=== PATIENT | male | born 1985 | race Caucasian/White ===

== ENCOUNTER 2024-07-11 08:38 | Emergency (ER) | payer MEDICAID, SELFPAY ==
--- NOTE | 2024-07-11 09:03 | XR_ITS ---
Examination: PA lateral chest 2 views TECHNIQUE: Upright PA lateral chest 2 views Exam date and time: July 11, 2024 0926 hours INDICATIONS: Coughing fever shortness of breath beginning one week ago. FINDINGS: Suspicious for early right basilar pneumonia Normal heart size The osseous structures are intact IMPRESSION: Suspicious for early right base pneumonia
--- NOTE | 2024-07-11 09:04 | PD.EDURI ---
Upper Respiratory Inf. RME/HPI General Chief Complaint: Flu Like Symptoms Stated Complaint: Cough, chest pain, fever Time Seen by Provider: 07/11/24 09:05 Source: patient Arrival date/time: 07/11/24 08:38 38-year-old male with no known medical history presents to the emergency room with a chief complaint of cough, chest pain, fever x 1 week. Mode of arrival: ambulatory Limitations: no limitations Related Data Home Medications ?Medication ?Instructions ?Recorded ?Confirmed Hydrocodone/Acetaminophen * (NORCO 1 tab PO Q6H PRN PAIN #0 tabs 09/30/14 10/325 *) albuterol sulfate 90 mcg/actuation 1 puff inhalation Q4HR PRN PRN ##0 09/30/14 aerosol inhaler (ProAir HFA) beclomethasone dipropionate 80 1 puff inhalation Q4HR PRN PRN #0 09/30/14 mcg/actuation aerosol inhaler puffs (Qvar) carisoprodol 350 mg tablet 350 mg PO HS #0 tabs 09/30/14 gabapentin 400 mg capsule 800 mg PO TID #0 caps 09/30/14 naproxen 500 mg tablet (Naprosyn) 500 mg PO BIDWM #0 tabs 09/30/14 quetiapine 400 mg tablet (Seroquel) 800 mg PO HS #0 tabs 09/30/14 baclofen 20 mg tablet 20 mg PO TID #0 tabs 10/01/15 Previous Rx's ?Medication ?Instructions ?Recorded hydrocodone 5 mg-acetaminophen 325 1 tab PO Q6H PRN pain #14 tabs 05/20 mg tablet ([place]) ibuprofen 800 mg tablet 800 mg PO TID PRN pain #20 tabs 09/08/19 acetaminophen 325 mg capsule 650 mg (2 x 325 mg) PO QID PRN 07/11/24 fever or pain 7 days #30 caps albuterol sulfate 90 mcg/actuation 2 inh inhalation Q6H PRN shortness 07/11/24 breath activated powder inhaler of breath or wheezing #1 ea amoxicillin 875 mg-potassium 1 tab PO BID 7 days #14 tabs 07/11/24 clavulanate 125 mg tablet Allergies Allergy/AdvReac Type Severity Reaction Status Date / Time NKA* Allergy Uncoded 10/23/22 06:39 Review of Systems Review of Systems Systems Reviewed: All systems reviewed, normal except as documented Constitutional Constitutional: Reports system reviewed and no additional complaints, except as documented, Denies fatigue, Denies fever(s), Denies headache(s) and Denies weakness Eyes Eyes: Reports system reviewed and no additional complaints, except as documented, Denies blurry vision and Denies change in vision ENT Ears, Nose, Mouth, and Throat: Reports system reviewed and no additional complaints, except as documented, Denies otalgia, Denies headache(s), Denies nasal congestion, Denies throat swelling and Denies vertigo Cardiovascular Cardiovascular: Reports system reviewed and no additional complaints, except as documented, Denies chest pain, Reports dyspnea and Reports dyspnea on exertion Respiratory Respiratory: Reports system reviewed and no additional complaints, except as documented, Reports chest congestion, Reports cough, Reports dyspnea, Reports dyspnea on exertion, Reports excessive phlegm production, Reports pain on inspiration, Reports pain with cough and Reports wheezing Gastrointestinal Gastrointestinal: Reports system reviewed and no additional complaints, except as documented, Denies abdominal pain, Denies cramping, Denies nausea and Denies vomiting Genitourinary Genitourinary: Reports system reviewed and no additional complaints, except as documented, Denies dysuria and Denies hematuria Musculoskeletal Musculoskeletal: Reports system reviewed and no additional complaints, except as documented and Denies back pain Integumentary/Breasts Skin/Breast: Reports system reviewed and no additional complaints, except as documented and Denies wounds Neurologic Neurologic: Reports system reviewed and no additional complaints, except as documented, Denies confusion, Denies headache(s), Denies lack of coordination, Denies vertigo and Denies weakness Psychiatric Psychiatric: Reports system reviewed and no additional complaints, except as documented, Denies anxiety, Denies confusion, Denies depression, Denies paranoia, Denies suicidal ideation and Denies tactile hallucinations Endocrine Endocrine: Reports system reviewed and no additional complaints, except as documented and Denies fatigue Hematologic/Lymphatic Hematologic/Lymphatic: Reports system reviewed and no additional complaints, except as documented and Denies lymphadenopathy Allergic/Immunologic Allergic/Immunologic: Reports system reviewed and no additional complaints, except as documented, Denies throat swelling, Denies urticaria and Reports wheezing ED Exam General Limitations: Present no limitations General appearance: Present alert and in no apparent distress Head Head exam: Present atraumatic Eye Eye exam: Present normal appearance, PERRL and EOMI ENT ENT exam: Present normal exam, normal oropharynx and mucous membranes moist Neck Neck exam: Present normal inspection, full ROM and trachea midline Chest Chest inspection: Present normal inspection and symmetric chest wall rise Respiratory Respiratory exam: Present normal lung sounds bilaterally and wheezes; Absent respiratory distress, stridor, accessory muscle use or prolonged expiratory phase Expanded Respiratory Exam Location: Left: wheezes, Right: wheezes, Upper: wheezes and Lower: wheezes Cardiovascular Cardiovascular exam: Present regular rate, normal rhythm and normal heart sounds Abdominal Exam Abdominal exam: Present soft and normal bowel sounds Extremities Exam Extremities exam: Present normal inspection and full ROM Back Exam Back exam: Present normal inspection and full ROM Neurological Exam Neurological exam: Present alert, oriented X3 and CN II-XII intact Psychiatric Psychiatric exam: Present normal affect and normal mood Skin Skin exam: Present warm, dry, intact and normal color Course Quality Measures none Orders Category Date Time Status Bedside COVID-19 Antigen Test NOW Care 07/11/24 09:03 Completed Bedside Influenza A&B Antigen Test NOW Care 07/11/24 09:03 Completed XR chest 2V Stat Exams 07/11/24 09:03 Completed Albuterol/Ipratr Rt Debby [Duoneb Rt Debby] Med 07/11/24 09:03 Discontinued 3 ml INH X1 ONE Dexamethasone Inj [Decadron Inj] Med 07/11/24 09:03 Discontinued 10 mg PO X1 ONE Vital Signs Vital signs: Vital Signs Temperature 98.3 F 07/11/24 09:11 Pulse Rate 60 07/11/24 09:11 Respiratory Rate 20 07/11/24 09:11 Blood Pressure 175/97 H 07/11/24 09:11 Pulse Oximetry (%) 96 07/11/24 09:11 Oxygen Delivery Method Room Air 07/11/24 09:11 O2 saturation 96% within normal limits Upper Respiratory Infection MDM Narrative MDM Narrative:: 38-year-old male with no known medical history presents to the emergency room with a chief complaint of cough, chest pain, fever x 1 week. Patient is hemodynamically stable. Patient states he is short of breath. Lung sounds show wheezing bilaterally to the lower and upper lobes. Patient is congested, has a cough and states he has had intermittent fevers better controlled with medication. A breathing treatment and steroids was ordered and the patient was reevaluated in 1 hour with significant improvement to his symptoms. Patient's O2 saturation is 99% on room air. X-ray was completed and shows early right sided lower pneumonia. COVID-19 and influenza test were both negative. Patient was discharged with antibiotics educated to follow-up with primary care provider and return to the emergency room for any evidence of worsening signs or symptoms. Patient data External records reviewed:: [facility] previous records Clinical information provided by:: patient Social determinants that could affect healthcare access:: none Patient has the following chronic illnesses:: No chronic illness How is presenting disease/condition affected by chronic disease/condition?: no chronic disease Evaluation data The following diagnostics were reviewed and interpreted by me:: lab results and radiology exam(s) Lab and/or radiology exams considered but not ordered:: Labs and radiology exams considered and ordered Interpretation Summary: Chest [id number]: Suspicious for early right basilar pneumonia Normal heart size The osseous structures are intact IMPRESSION: Suspicious for early right base pneumonia Medications / Prescriptions Medications or Prescriptions considered but not ordered:: Medication given Medication administrations:: Medication Administration History Discontinued Medications Albuterol/Ipratropium (Albuterol/Ipratropium (Duoneb) Rt Debby 3 Ml Nebu) 3 ml INH X1 ONE Stop: 07/11/24 09:04 Last Admin: 07/11/24 09:30 Dose: 3 ml Documented By: RENEE Dexamethasone Sodium Phosphate (Dexamethasone Sod Phos Inj 10 Mg/Ml Vial) 10 mg PO X1 ONE Stop: 07/11/24 09:04 Last Admin: 07/11/24 09:12 Dose: 10 mg Documented By: VG Medication given Consultations Consultation(s) initiated? (list below): No Diagnosis Upper Respiratory Differential Diagnosis: upper respiratory infection, viral infection, bronchitis, influenza and other (Community-acquired pneumonia) Most likely diagnosis given after review of the tests above:: Community-acquired pneumonia Admission Indicated Admission indicated?: not indicated Admission Request Was there a request for admission?: No Disposition Plan Disposition Plan: Discharge Discharge Attestation Discharge Attestation: The patient and all family members were given an opportunity to ask questions and understood the discharge instructions. Discharge instructions specifically effects, indications for sooner follow up or return to the emergency department, and the expected course of current diagnosis. Patient condition: Stable Discharge Plan Plan Patient Disposition: HOME (Self Care) Disposition Comment: Stable Prescriptions/Referrals Prescriptions/Med Rec: New amoxicillin-pot clavulanate 875-125 mg tablet 1 tab PO BID 7 Days Qty: 14 0RF acetaminophen 325 mg capsule 650 mg PO QID PRN (Reason: fever or pain) 7 Days Qty: 30 0RF albuterol sulfate 90 mcg/actuation aerosol powdr breath activated 2 inh inhalation Q6H PRN (Reason: shortness of breath or wheezing) Qty: 1 0RF No Action carisoprodol 350 MG tablet 350 mg PO HS Qty: 0 gabapentin 400 MG capsule 800 mg PO TID Qty: 0 beclomethasone dipropionate [Qvar] 100 PUFF/INH aerosol 1 puff Inhalation Q4HR PRN (Reason: PRN) Qty: 0 albuterol sulfate [ProAir HFA] 8.5 GM HFA aerosol inhaler 1 puff Inhalation Q4HR PRN (Reason: PRN) Qty: 0 naproxen [Naprosyn] 500 MG tablet 500 mg PO BIDWM Qty: 0 Patient Comments: PRN PAIN quetiapine [Seroquel] 400 MG tablet 800 mg PO HS Qty: 0 Hydrocodone/Acetaminophen * (NORCO 10/325 *) 1 TAB tablet 1 tab PO Q6H PRN (Reason: PAIN) Qty: 0 baclofen 20 MG tablet 20 mg PO TID Qty: 0 hydrocodone-acetaminophen [K[place]land] 5-325 mg tablet 1 tab PO Q6H MDD 1 tablet in 6 hours PRN (Reason: pain) Qty: 14 0RF ibuprofen 800 mg tablet 800 mg PO TID PRN (Reason: pain) Qty: 20 0RF Referrals: No Primary/Family,Physician [Primary Care Provider] - In 1 week Problem List Clinical Impression: Community acquired pneumonia Patient/Caregiver Discharge Instructions Education Materials: ED Pneumonia (Adult) Additional Instructions: Please follow-up with your primary care provider in the next 24 to 48 hours. Antibiotics are sent to your pharmacy please pick them up and take them as indicated. I also sent an inhaler and some Tylenol to help you with your fever and help with the wheezing For any evidence of worsening signs or symptoms return to the emergency room immediately Print Language: Luxembourgish Stand Alone Forms: Carmen Award Info., Work/School Release, Patient Portal Info Letter PA/ATM TECHNICIAN Supervising Physician PA/ATM TECHNICIAN Supervising Physician: Dr. SAUNDERS
[2024-07-11 09:11] VITALS: BP 175/97; PULSE 60; RESP 20; TEMP 36.8; O2SAT 96
[2024-07-11 09:12] VITALS: BMI 30.6
[2024-07-11] MEDS: DEXAMETHASONE SOD PHOS INJ 10 MG/ML VIAL PO (09:12)
[2024-07-11] MEDS: ALBUTEROL/IPRATROPIUM (Duoneb) RT SOL 3 ML NEBU INH (09:30)
[2024-07-11 09:31] VITALS: PULSE 57; RESP 16; O2SAT 99
== END 2024-07-11 10:55 | disposition home or self-care (01) ==
PROVIDERS: Emergency Provider Emergency Medicine
DX: J18.9 Pneumonia, unspecified organism (principal)
CPT/HCPCS: 71046; 87400; 87811; 94640; 99283; A9270; J1100

== ENCOUNTER 2025-05-26 12:48 | Emergency (ER) | payer MEDICAID, SELFPAY ==
[2025-05-26 13:10] VITALS: BP 144/95; PULSE 58; RESP 20; TEMP 36.7; O2SAT 97; BMI 31.4
--- NOTE | 2025-05-26 13:23 | XR_ITS ---
Portable upright chest film on 05/26/2025 at 1:24 p.m. Comparison study 07/11/2024 INDICATION: Chest pain and congestion for 1 week FINDINGS: Heart size mediastinum and hilar regions are all radiographically normal. Both lungs and pleural space are clear no bony abnormalities are noted. There is very minimal chronic pleural thickening along the mid lateral right lung IMPRESSION: Essentially negative chest
--- NOTE | 2025-05-26 13:44 | EDNOTE_ITS ---
ED SOB =RME/HPI General Chief Complaint: Shortness of Breath/Dyspnea Stated Complaint: CONGESTION, SOB, SWEATING, FEVER Time Seen by Provider: 05/26/25 13:09 Source: patient Arrival date/time: 05/26/25 12:48 39-year-old male with no known medical history presents to the emergency room with a chief complaint of congestion, shortness of breath, fever, sweating x 3 days Mode of arrival: ambulatory Limitations: no limitations Related Data Home Medications ?Medication ?Instructions ?Recorded ?Confirmed Hydrocodone/Acetaminophen * (NORCO 1 tab PO Q6H PRN PA IN #0 tabs 09/30/14 10/325 *) albuterol sulfate 90 mcg/actuation 1 puff inhalation Q 4HR PRN PRN ##0 09/30/14 aerosol inhaler (ProAir HFA) beclomethasone dipropionate 80 1 puff inhalation Q4HR PRN PRN #0 09/30/14 mcg/actuation aerosol inhaler puffs (Qvar) carisoprodol 350 mg tablet 350 mg PO HS #0 tabs gabapentin 400 mg capsule 800 mg PO TID #0 caps naproxen 500 mg tablet (Naprosyn) 500 mg PO BIDWM #0 t abs 09/30/14 quetiapine 400 mg tablet (Seroquel) 800 mg PO HS #0 ta bs 09/30/14 baclofen 20 mg tablet 20 mg PO TID #0 tabs 6 Previous Rx's ?Medication ?Instructions ?Recorded hydrocodone 5 mg-acetaminophen 325 1 tab PO Q6H PRN pa in #14 tabs 09/07/20 mg tablet (Aubrey) ibuprofen 800 mg tablet 800 mg PO TID PRN pain #20 t abs 09/08/19 albuterol sulfate 90 mcg/actuation 2 inh inhalation Q6 H PRN shortness 07/11/24 breath activated powder inhaler of breath or wheezing #1 ea Allergies Allergy/AdvReac Type Severity Reaction Status Date / Time No Known Allergies Allergy Verified 05/26/25 12:51 Review of Systems Review of Systems Systems Reviewed: All systems reviewed, normal except as documented Constitutional Constitutional: Reports system reviewed and no additional complaints, except as documented, Denies fatigue, Denies fever(s), Denies headache(s) and Denies weakness Eyes Eyes: Reports system reviewed and no additional complaints, except as documented, Denies blurry vision and Denies change in vision ENT Ears, Nose, Mouth, and Throat: Reports system reviewed and no additional complaints, except as documented, Denies otalgia, Denies headache(s), Denies nasal congestion, Denies throat swelling and Denies vertigo Cardiovascular Cardiovascular: Reports system reviewed and no additional complaints, except as documented, Denies chest pain, Reports dyspnea and Denies dyspnea on exertion Respiratory Respiratory: Reports system reviewed and no additional complaints, except as documented, Denies chest congestion, Reports cough, Reports dyspnea, Denies dyspnea on exertion and Denies wheezing Gastrointestinal Gastrointestinal: Reports system reviewed and no additional complaints, except as documented, Denies abdominal pain, Denies cramping, Denies nausea and Denies vomiting Genitourinary Genitourinary: Reports system reviewed and no additional complaints, except as documented, Denies dysuria and Denies hematuria Musculoskeletal Musculoskeletal: Reports system reviewed and no additional complaints, except as documented and Denies back pain Integumentary/Breasts Skin/Breast: Reports system reviewed and no additional complaints, except as documented and Denies wounds Neurologic Neurologic: Reports system reviewed and no additional complaints, except as do cumented, Denies confusion, Denies headache(s), Denies lack of coordination, Denies vertigo and Denies weakness Psychiatric Psychiatric: Reports system reviewed and no additional complaints, except as documented, Denies anxiety, Denies confusion, Denies depression, Denies paranoia, Denies suicidal ideation and Denies tactile hallucinations Endocrine Endocrine: Reports system reviewed and no additional complaints, except as documented and Denies fatigue Hematologic/Lymphatic Hematologic/Lymphatic: Reports system reviewed and no additional complaints, except as documented and Denies lymphadenopathy Allergic/Immunologic Allergic/Immunologic: Reports system reviewed and no additional complaints, except as documented, Denies throat swelling, Denies urticaria and Denies wheezing Past Medical History Past Medical History CARDIAC: Negative Congestive Heart Failure RESPIRATORY: Negative Chronic Obstructive Pulmonary Disease (COPD) GENITOURINARY: Negative Renal Disease ENDOCRINE: Negative Diabetes Mellitus Type 1 or Diabetes Mellitus Type 2 Social History SMOKING STATUS: Never smoker ED Exam General Limitations: Present no limitations General appearance: Present alert and in no apparent distress Head Head exam: Present atraumatic Eye Eye exam: Present normal appearance, PERRL and EOMI ENT ENT exam: Present normal exam, normal oropharynx and mucous membranes moist Neck Neck exam: Present normal inspection, full ROM and trachea midline Chest Chest inspection: Present normal inspection and symmetric chest wall rise Respiratory Respiratory exam: Present normal lung sounds bilaterally; Absent respiratory distress, wheezes, stridor, accessory muscle use or prolonged expiratory phase Cardiovascular Cardiovascular exam: Present regular rate, normal rhythm and normal heart sounds Abdominal Exam Abdominal exam: Present soft and normal bowel sounds Extremities Exam Extremities exam: Present normal inspection and full ROM Back Exam Back exam: Present normal inspection and full ROM Neurological Exam Neurological exam: Present alert, oriented X3 and CN II-XII intact Psychiatric Psychiatric exam: Present normal affect and normal mood Skin Skin exam: Present warm, dry, intact and normal color Course Quality Measures none Orders Category Date Time Status Bedside COVID-19 Antigen Test NOW Care 05/26/25 13:23 Active Bedside Influenza A&B Antigen Test NOW Care 05/26/25 13:23 Completed XR chest 1V portable Stat Exams 05/26/25 13:23 Completed Vital Signs Vital signs: Vital Signs Temperature 98.1 F 05/26/25 13:10 Pulse Rate 58 L 05/26/25 13:10 Respiratory Rate 20 05/26/25 13:10 Blood Pressure 144/95 H 05/26/25 13:10 Pulse Oximetry (%) 97 05/26/25 13:10 Oxygen Delivery Method Room Air 05/26/25 13:10 Shortness of Breath / Dyspnea MDM Narrative MDM Narrative:: 39-year-old male with no known medical history presents to the emergency room with a chief complaint of congestion, shortness of breath, fever, sweating x 3 days Patient is hemodynamically stable and in no apparent distress Physical examination shows clear bilateral lung sounds there is no wheezing or any abnormal breath sounds. Chest x-ray was completed and was negative for any pneumonic infiltrates. Patient tested negative for influenza and COVID-19 Patient was discharged and educated to follow-up with primary care provider in the next 24 to 48 hours and return to the emergency room for any evidence of worsening signs or symptoms Patient data External records reviewed:: [facility] previous records Clinical information provided by:: patient Social determinants that could affect healthcare access:: none Patient has the following chronic illnesses:: No chronic illness How is presenting disease/condition affected by chronic disease/condition?: no chronic disease Evaluation data The following diagnostics were reviewed and interpreted by me:: lab results and radiology exam(s) Lab and/or radiology exams considered but not ordered:: Labs radiology exams considered and ordered Interpretation Summary: Chest [id number]: Heart size mediastinum and hilar regions are all radiographically normal. Both lungs and pleural space are clear no bony abnormalities are noted. There is very minimal chronic pleural thickening along the mid lateral right lung IMPRESSION: Essentially negative chest Medications / Prescriptions Medications or Prescriptions considered but not ordered:: No medication given Medication administrations:: No medication given Consultations Consultation(s) initiated? (list below): No Diagnosis Shortness of Breath Differential Diagnosis: community acquired pneumonia and other (Upper respiratory infection/influenza/COVID-19) Most likely diagnosis given after review of the tests above:: Upper respiratory infection Admission Indicated Admission indicated?: not indicated Admission Request Was there a request for admission?: No Disposition Plan Disposition Plan: Discharge Discharge Attestation Discharge Attestation: The patient and all family members were given an opportunity to ask questions and understood the discharge instructions. Discharge instructions specifically effects, indications for sooner follow up or return to the emergency department, and the expected course of current diagnosis. Patient condition: Stable Discharge Plan Plan Patient Disposition: HOME (Self Care) Discharge Disposition comment: Stable Prescriptions/Referrals Prescriptions/Med Rec: No Action carisoprodol 350 MG tablet 350 mg PO HS Qty: 0 gabapentin 400 MG capsule 800 mg PO TID Qty: 0 beclomethasone dipropionate [Qvar] 100 PUFF/INH aerosol 1 puff Inhalation Q4HR PRN (Reason: PRN) Qty: 0 albuterol sulfate [ProAir HFA] 8.5 GM HFA aerosol inhaler 1 puff Inhalation Q4HR PRN (Reason: PRN) Qty: 0 naproxen [Naprosyn] 500 MG tablet 500 mg PO BIDWM Qty: 0 Patient Comments: PRN PAIN quetiapine [Seroquel] 400 MG tablet 800 mg PO HS Qty: 0 Hydrocodone/Acetaminophen * (NORCO 10/325 *) 1 TAB tablet 1 tab PO Q6H PRN (Reason: PAIN) Qty: 0 baclofen 20 MG tablet 20 mg PO TID Qty: 0 hydrocodone-acetaminophen [Aubrey] 5-325 mg tablet 1 tab PO Q6H MDD 1 tablet in 6 hours PRN (Reason: pain) Qty: 14 0RF ibuprofen 800 mg tablet 800 mg PO TID PRN (Reason: pain) Qty: 20 0RF albuterol sulfate 90 mcg/actuation aerosol powdr breath activated 2 inh inhalation Q6H PRN (Reason: shortness of breath or wheezing) Qty: 1 0RF Referrals: Matheus Deleon MD [Primary Care Provider, [facility]] - In 1 week Problem List Clinical Impression: Upper respiratory infection, viral Patient/Caregiver Discharge Instructions Education Materials: ED URI, Viral, No Abx (Adult) Additional Instructions: Please follow-up with your primary care provider in the next 24 to 48 hours. You tested negative for influenza, COVID-19. Your chest x-ray was negative for pneumonia. Your most likely source is an upper viral respiratory infection. The treatment for this is symptom management. Please continue to take Tylenol and ibuprofen for fever management. Please increase your oral fluid intake. For any evidence of worsening signs or symptoms please return to the emergency room immediately Print Language: Comoran Stand Alone Forms: Carmen Award Info., Work/School Release, Patient Portal Info Letter PA/MANAGER BUSINESS BANKING Supervising Physician PA/GIACOMO Supervising Physician: Dr. Rubi
== END 2025-05-26 15:54 | disposition home or self-care (01) ==
PROVIDERS: Emergency Provider Family Medicine; PCP Family Medicine
DX: J06.9 Acute upper respiratory infection, unspecified (principal)
CPT/HCPCS: 71045; 87502; 87635; 99282